=== PATIENT | male | born 1990 | race Caucasian/White ===

== ENCOUNTER 2023-12-03 19:22 | Emergency (ER) | payer MEDICAID, MEDICARE ==
[~2023-12-03] VITALS: Ht 172.7 cm; Wt 127.0 kg
[2023-12-03] MEDS ORDERED: CEFD1CAP9 (19:30)
[2023-12-03] MEDS ORDERED: CIPRHCOTIC (19:30)
[2023-12-03] MEDS ORDERED: LISI20TA37 (19:37)
[2023-12-03] MEDS ORDERED: OMEP-173 (19:37)
[2023-12-03] MEDS: ACETAMINOPHEN TAB 650MG DOSE (2X325MG) PO ONE (20:05)
[2023-12-03] MEDS ORDERED: ALLE10TA62 PO (22:28)
[2023-12-03] MEDS ORDERED: FLON1SPR NARES (22:28)
[2023-12-03] MEDS ORDERED: AMOX875T2 PO (22:28)
[2023-12-03 22:34] VITALS: BP 138/100; TEMP 98.2; O2SAT 99
== END 2023-12-03 22:37 | disposition home or self-care (01) ==
LOC: M ED 19:22
DX: K04.7 Periapical abscess without sinus (principal); J01.90 Acute sinusitis, unspecified; Z88.8 Allergy status to other drugs, medicaments and biological substances; Z79.2 Long term (current) use of antibiotics; Z79.899 Other long term (current) drug therapy